=== PATIENT | female | born 1940 | race Caucasian/White ===

== ENCOUNTER 2017-10-21 09:09 | Observation (INO) | payer OTHER ==
[~2017-10-21] VITALS: Ht 160 cm; Wt 38.0 kg
[2017-10-21 09:25] LABS: BASOPHILS % (AUTO) 0.9 % (0.0-5.0); EOSINOPHILS % (AUTO) 0.6 % (0.0-8.0); HEMATOCRIT 33.1 % (36-48); LYMPHOCYTES % (AUTO) 18.2 % (21.0-51.0); MEAN CORPUSCULAR HEMOGLOBIN 32.6 pg (27.0-33.0); MEAN CORPUSCULAR VOLUME 93.3 fL (79-99); NEUTROPHILS % (AUTO) 73.3 % (40.0-77.0); NUCLEATED RED BLOOD CELLS 0.1 % (0.0-0.19); PLATELET COUNT (AUTO) 238 K/uL (130-400); RED BLOOD CELL COUNT(AUTO) 3.55 MIL/uL (4.00-5.50); RED CELL DISTRIBUTION WIDTH 13.2 % (11.0-15.5); WHITE BLOOD COUNT (AUTO) 9.3 K/uL (4.8-10.8)
[2017-10-21] MEDS ORDERED: SODIUM CHLORIDE 0.9% 500ML 500 ML IV ONE (09:27)
[2017-10-21 09:38] LABS: CREATININE 1.2 mg/dL (0.5-1.5); POTASSIUM 3.8 mmol/L (3.5-5.1)
[2017-10-21 09:42] LABS: INR 0.95 (0.85-1.15)
[2017-10-21 09:53] LABS: BILIRUBIN,TOTAL 0.4 mg/dL (0.2-1.0); CREATINE KINASE MB 0.6 ng/mL (0.5-3.6); TOTAL PROTEIN, SERUM 6.5 g/dL (6.0-8.3)
[2017-10-21] MEDS ORDERED: LEVOFLOXACIN 500 MG/D5W 100 ML 100 ML ONE (09:53)
[2017-10-21] MEDS ORDERED: SODIUM CHLORIDE 0.9% 1000ML 1,000 ML IV ONE (10:14)
[2017-10-21] MEDS ORDERED: LORAZEPAM 2 MG/ML 1 ML VIAL ONE (11:19)
[2017-10-21 21:25] VITALS: BP 159/78
[2017-10-21 23:28] VITALS: BP 145/90
[2017-10-22] MEDS: SODIUM CHLORIDE 0.9% 1000ML 1,000 ML IV SCH ×3 (01:30→23:46)
[2017-10-22] MEDS ORDERED: FLUO20CA30 PO (01:31)
[2017-10-22] MEDS ORDERED: CYCL10 PO (01:31)
[2017-10-22] MEDS ORDERED: MIRT30TA6 PO (01:31)
[2017-10-22] MEDS ORDERED: HYDR-309 PO (01:31)
[2017-10-22] MEDS ORDERED: GABA-529 PO (01:31)
[2017-10-22] MEDS ORDERED: DONE10TA8 PO (01:31)
[2017-10-22] MEDS ORDERED: WHEA1POW2 PO (01:31)
[2017-10-22 03:51] VITALS: BP 143/85
[2017-10-22 04:01] LABS: HEMATOCRIT 36.1 % (36-48); MEAN CORPUSCULAR HEMOGLOBIN 31.3 pg (27.0-33.0); MEAN CORPUSCULAR HGB CONC 33.9 g/dL (32.0-36.0); MEAN CORPUSCULAR VOLUME 92.4 fL (79-99); PLATELET COUNT (AUTO) 281 K/uL (130-400); RED BLOOD CELL COUNT(AUTO) 3.91 MIL/uL (4.00-5.50); RED CELL DISTRIBUTION WIDTH 12.7 % (11.0-15.5); WHITE BLOOD COUNT (AUTO) 9.2 K/uL (4.8-10.8)
[2017-10-22 04:13] LABS: CREATININE 0.9 mg/dL (0.5-1.5); POTASSIUM 3.3 mmol/L (3.5-5.1)
[2017-10-22] MEDS ORDERED: LIDOCAINE HCL-MPF 1% 2ML VIAL IVP PRN (04:45)
[2017-10-22] MEDS ORDERED: ACETAMINOPHEN 325 MG TAB PO PRN (04:45)
[2017-10-22] MEDS ORDERED: POTASSIUM CHLORIDE 10% ELIXIR 20 MEQ/15 ML UDCUP PO PRN (04:45)
[2017-10-22] MEDS ORDERED: LORAZEPAM 2 MG/ML 1 ML VIAL IVP PRN (04:45)
[2017-10-22] MEDS ORDERED: MAGNESIUM 2GM PREMIX 50ML 50 ML IV PRN (04:45)
[2017-10-22] MEDS ORDERED: POTASSIUM CHLORIDE 20MEQ/100ML 100 ML IV PRN (04:45)
[2017-10-22] MEDS ORDERED: HYDROCODONE/ACETAMINOPHEN 5/325 MG TAB PO PRN (06:45)
[2017-10-22 07:49] VITALS: BP 145/92
[2017-10-22] MEDS: FLUOXETINE HCL 20 MG CAPSULE PO SCH (09:12)
[2017-10-22] MEDS: CYCLOBENZAPRINE HCL 10 MG TABLET PO SCH ×3 (09:13→23:37)
[2017-10-22] MEDS: MIRTAZAPINE 15 MG TABLET PO SCH (09:13)
[2017-10-22] MEDS: GABAPENTIN 100 MG CAPSULE PO SCH ×3 (09:13→23:36)
[2017-10-22] MEDS: POTASSIUM CHLORIDE 20 MEQ ERTAB PO PRN ×3 (09:17→18:44)
[2017-10-22 11:00] VITALS: BP 137/85
[2017-10-22 16:00] VITALS: BP 154/99
[2017-10-22 19:48] VITALS: BP 134/67
[2017-10-22] MEDS ORDERED: DONEPEZIL HCL 5 MG TAB PO SCH (21:00)
[2017-10-23] VITALS: BP 129/62
[2017-10-23 03:51] VITALS: BP 143/67
[2017-10-23 04:28] LABS: BASOPHILS % (AUTO) 0.6 % (0.0-5.0); LYMPHOCYTES % (AUTO) 20.5 % (21.0-51.0); MEAN CORPUSCULAR HEMOGLOBIN 32.7 pg (27.0-33.0); MEAN CORPUSCULAR HGB CONC 35.6 g/dL (32.0-36.0); MEAN CORPUSCULAR VOLUME 91.6 fL (79-99); MONOCYTES % (AUTO) 8.2 % (3.0-13.0); NEUTROPHILS % (AUTO) 69.7 % (40.0-77.0); PLATELET COUNT (AUTO) 271 K/uL (130-400); WHITE BLOOD COUNT (AUTO) 7.5 K/uL (4.8-10.8)
[2017-10-23 04:38] LABS: CREATININE 0.9 mg/dL (0.5-1.5); MAGNESIUM 2.2 mg/dL (1.80-2.40); POTASSIUM 4.1 mmol/L (3.5-5.1)
[2017-10-23 08:00] VITALS: BP 159/82
[2017-10-23] MEDS: MIRTAZAPINE 15 MG TABLET PO SCH (10:16)
[2017-10-23] MEDS: FLUOXETINE HCL 20 MG CAPSULE PO SCH (10:16)
[2017-10-23] MEDS: CYCLOBENZAPRINE HCL 10 MG TABLET PO SCH ×2 (10:17→14:06)
[2017-10-23] MEDS: GABAPENTIN 100 MG CAPSULE PO SCH ×2 (10:17→14:06)
[2017-10-23 11:38] VITALS: BP 144/79
[2017-10-23] MEDS: SODIUM CHLORIDE 0.9% 1000ML 1,000 ML IV SCH (14:05)
[2017-10-23 16:00] VITALS: BP 165/74
== END 2017-10-23 18:22 | disposition home or self-care (01) ==
LOC: EDH 09:09 → EDHIP 10:07 → 3CH 20:43
PROVIDERS: ADMIT Internal Medicine Nephrology; ATTEND Internal Medicine Nephrology
DX: R19.7 Diarrhea, unspecified (principal); E86.0 Dehydration; E87.0 Hyperosmolality and hypernatremia; E83.42 Hypomagnesemia; E87.6 Hypokalemia; F03.90 Unspecified dementia, unspecified severity, without behavioral disturbance, psychotic disturbance, mood disturbance, and anxiety
CPT/HCPCS: 36415 ×3; 80048 ×2; 80053; 82270; 82550; 82553; 83605; 83735 ×2; 84484; 85025 ×2; 85027; 85610; 85730; 87046; 87177; 87205; 87324; 92610; 96361; 96365; 96366; 97039; 97116; 97161; 99285; A6250; G0378 ×56; G8978; G8979; G8980; G8981; G8982; G8983; J1956; J2060; J3475; J7030 ×2; J7040